=== PATIENT | female | born 1940 | race Caucasian/White ===

== ENCOUNTER → 2019-04-10 08:35 | Outpatient (CLI) | payer MEDICARE, BC, SELFPAY ==
--- NOTE | 2019-04-10 08:40 | RAD_ITS ---
STUDY: BARIUM ESOPHAGRAM REASON FOR EXAM: Female, 78 years old. Dysphagia, 30 pound weight loss, anorexia RADIATION DOSAGE (If Supplied By Facility): CTDIvol = ( ) mGy, DLP = ( ) mGycm. Individualized dose optimization techniques were used for this CT.? FLUOROSCOPY TIME (if supplied): (1:08) minutes/seconds TECHNIQUE: Air-contrast COMPARISON: None. FINDINGS: Swallowing was initiated normally. No nasofrontal reflux or aspiration. No Zenker's diverticulum noted on the lateral view. Normal peristaltic activity. No tertiary contractions or intraesophageal reflux. No evidence of hiatal hernia or GE reflux. 13 mm barium pill passed through the esophagus without difficulty. RAD/Esophagus Only IMPRESSION: Unremarkable air-contrast barium esophagram Electronically Signed: Mat Zavala MD at 10:50 EDT , Service support ,
== END ==
PROVIDERS: Family Provider Family Medicine; PCP Family Medicine; Referring Provider Internal Medicine Gastroenterology; Visit Provider Internal Medicine Gastroenterology
DX: R13.10 Dysphagia, unspecified (principal)
CPT/HCPCS: 74220

== ENCOUNTER 2025-01-06 13:23 | Outpatient (RCR) | payer MEDICARE, BC, SELFPAY ==
[2025-01-06 13:51] VITALS: BP 133/60; PULSE 83; RESP 14; TEMP 36.8; BMI 16.5
--- NOTE | 2025-01-07 09:44 | WC ---
PHOTO 01/06/25 YAW
--- NOTE | 2025-01-07 15:26 | PCM.WC.HP ---
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 The ulceration began as a traumatic wound which occurred on November 21, 2024, when the patient tripped and injured her distal right lower extremity. She was seen and evaluated in the emergency department at [facility], where sutures were placed for closure of an open wound. The patient experienced pain at the injury site, and return to the emergency department several time over the next several days. Finally, on the third visit, she was told that the stitches which had been placed were too tight. The sutures were removed approximately 10 days following their placement. Steri-Strips were applied. However, the patient suffered a dehiscence of the wound closure, and has developed a ulceration at the injury site. As per instructions, the patient has been using bacitracin topically. She presented for definitive evaluation and management relative to this chronic, nonhealing ulceration. The patient has a history of multiple pre-existing medical problems, which are listed herein. However, she is not diabetic. She is not a smoker. Her ambulatory capacity is limited. She requires a cane for ambulation. She lives alone, but has an adult son who assists in her care. She also has home health nursing personnel. It appears as though the patient's appetite is not good. She has a chronic difficulty in swallowing. She has been losing weight. She is thin and frail, with a BMI of 16.6. [facility] Medical History Advanced age Iron deficiency anemia Osteoporosis Hypothyroidism Diverticulosis Hyperlipidemia Urinary incontinence Vitamin D deficiency Chronic respiratory failure Hammertoe of left foot COPD (chronic obstructive pulmonary disease) GERD (gastroesophageal reflux disease) Non-pressure chronic ulcer of right lower leg with fat layer exposed Home Medications ?Medication ?Instructions ?Recorded ?Last Taken ?Type lorazepam 1 mg tablet 1 mg PO Q8H PRN PRN agitation 01/06/25 Unknown History pantoprazole 20 mg tablet,delayed 20 mg PO DAILY 01/06/25 Unknown History release pantoprazole 40 mg tablet,delayed 40 mg PO DAILY 01/06/25 Unknown History release tiotropium 2.5 mcg-olodaterol 2.5 2 puff inhalation DAILY 01/06/25 Unknown History mcg/actuation mist for inhalation (Stiolto Respimat) tiotropium bromide 18 mcg capsule 1 cap inhalation DAILY 01/06/25 Unknown History with inhalation device Allergy/AdvReac Type Severity Reaction Status Date / Time fluticasone (From Advair Allergy PT UNSURE Verified 01/06/25 14:25 Diskus) OF REACTION salmeterol (From Advair Allergy PT UNSURE Verified 01/06/25 14:25 Diskus) OF REACTION Surgical History (Updated 01/07/25 @ 15:[address] Elvin Negron MD) History of bladder suspension procedure History of resection of small bowel Social History Smoking Status: Former smoker Vital Signs Vital Signs Vital Signs: Weight Weight: 82 lb Body Mass Index (BMI) 16.5 Debridement Note Debridement Note Post-Debridement Measurements and Additional Note: Post-Debridement Measurements/Treatment - Nurse 1 - General Ulcer Assessment Start: 01/06/25 13:50 Freq: Status: Active Protocol: TinybeansMariusz Activity Type Activity Date Activity User E-sign Co-sign Detail Recorded Client Recorded Date Recorded By Document 01/06/25 13:51 ML [id number] 01/06/25 14:11 ML 01/06/25 13:51 - Today's Visit Information Type of service Initial Visit Arrival Mode Ambulatory Transfer Assistance None Patient Identification Verified (Name & Yes ) Patient Requires Transmission-Based No Precautions Height and Weight Height 4 ft 11 in Weight 82 lb Weight in Pounds 82.0 lbs Body Mass Index (BMI) 16.5 BMI Classification Underweight Vital Signs Temperature (97.8 F-99.1 F) 98.3 F Temperature Source Temporal Pulse Rate (60-100) 83 Pulse Location Monitor Respiratory Rate (12-18) 14 Respiratory rate source Observation Blood Pressure (90/60-120/80) 133/60 H Blood Pressure Mean 84 Source Monitor Position Sitting Blood Pressure Location Right Arm Pain Scale: 0-10 Numeric Is Patient Pain Free? Yes Lower Extremity Assessment/ Foot Assessment/ Toe Nail Assessment Left -Polpliteal Pulses Palpable Yes -Hair Growth on Legs Yes -Hair Growth on Toes No -Temperature of Extremity Cool -Capillary Refill Less than 3 Seconds -Other Deformity No -Prior Foot Ulcer No -Charcot Joint No -Prior Amputation No -Thick No -Discolored No -Deformed No -Improper Length & Hygeine No Neuropathy Assessment Feet - Top Side and Bottom <Entered> (a) Communication Assessment Preferred language Macedonian Registrar Nurses' Registry Required No Able to Read Yes Able to Write Yes Caregiver Communication Skills No Impairment Impairment Right Hearing Abillity Hard of Hearing Left Hearing Abillity Hard of Hearing Visual Assistive Devices Glasses Teaching Assessment Preferences Verbal,Written, Audio/Visual, Demonstration Barriers to Learning None Readiness To Learn Excellent Willingness to Engage in Self Management High Activies Readiness to Engage in Self Management High Activities Anxiety Level Calm Cooperation Cooperative Perception Coherent Interest in Health Problem Asks Questions Education Importance Acknowledges Need Does Patient Smoke tobacco or other No substances Smoking Status Former smoker Is Patient Diabetic No Functional Assessment Recent Decline in Ability to Perform Denies Any Declines Assistive Device With Patient Yes List Device(s) with Patient cane Culture/Confucianism/Community Relations Officer Cultural/Confucianism Needs that may affect Yes Treatment Plan Would you allow our [facility] final expense agent to Yes meet you for the purpose of spiritual/ emotional support? Community Relations Officer to contact place of [facility] Yes (a) 1 - + 2 - + 3 - - 4 - + 5 - + 6 - + WC - Nurse 1 - General Ulcer Measurement Start: 01/06/25 13:50 Freq: Status: Active Protocol: Activity Type Activity Date Activity User E-sign Co-sign Detail Recorded Client Recorded Date Recorded By Document 01/06/25 13:51 ML [id number] 01/06/25 14:11 ML 01/06/25 13:51 Wound Center Nurse 1 #1 right martinez -Current Size (cm) - Length 0.9 -Current Size (cm) - Width 1.6 -Current Size (cm) - Depth 0.1 -Total Square Cm 1.44 -Exudate Amt Medium -Exudate Type Serosanguineous -Wound Margin Distinct, Outline Attached -Granulation Amt Medium (34-66%) -Slough/Fibrin Yes -Necrosis Amt Medium (34-66%) -Necrotic Tissue Type Adherent Slough -Texture (Joanne-wound Skin Appearance) Assessed -Moisture (Joanne-wound Skin Appearance) Assessed -Color (Joanne-wound Skin Appearance) Assessed -Temperature (Joanne-wound Skin No Abnormality Appearance) (Pt Warm) -Tenderness on Palpation (Joanne-wound No Skin Appearance) -Ulcer Cleansing Rinsed/ Irrigated with Saline -Foul Odor after Cleansing No -Anesthetic Used 5% Lidocaine Gel Right Calf (cm) 24.6 Right Ankle (cm) 17.6 Left Calf (cm) 26.2 Left Ankle (cm) 17.9 - Nurse 2 - General Ulcer CM Notes Start: 01/06/25 13:50 Freq: Status: Active Protocol: Activity Type Activity Date Activity User E-sign Co-sign Detail Recorded Client Recorded Date Recorded By Document 01/06/25 14:34 [id number] 01/06/25 14:47 01/06/25 14:34 Wound Center Nurse 2 #1 right martinez -Time 14:36 -Correct Patient Yes -Correct Side, Site, Position Yes -Correct Procedure Yes -Procedure Performed Yes -Type of Procedure Debridement -Clinical Debridement Subcutaneous -Tissue Removed Subcutaneous -Post Debridement (cm) - Length 0.7 -Post Debridement (cm) - Width 0.8 -Post Debridement (cm) - Depth 0.2 -Total Square (Post) (cm) 0.56 -Area of Debridement (cm) - Length 0.7 -Area of Debridement (cm) - Width 0.8 -Total Square (Area) (cm) 0.56 -Tunneling No -Undermining/Tunneling No -Circular Undermining No -Wound/Ulcer Outcome Not Healed -Ulcer Cleansing Rinsed/ Irrigated with Saline -Foul Odor after Cleansing No -Bioengineered Tissue No -Bleeding Controlled with Pressure -Treatment Response Procedure Tolerated Well -Debridement - Subq, 1st 20sq cm Yes Pain Scale: 0-10 Numeric Is Patient Pain Free? Yes - Nurse 3 - General Ulcer D/C NN Start: 01/06/25 13:50 Freq: Status: Active Protocol: Activity Type Activity Date Activity User E-sign Co-sign Detail Recorded Client Recorded Date Recorded By Document 01/06/25 14:56 [id number] 01/06/25 14:56 01/06/25 14:56 Wound Care Center Nurse 3 #1 right martinez -Primary Dressing Applied Fibracol Plus 4x4,Silicone Border Foam 4x4 -Fibracol Plus 4x4 1 -Silicone Border Foam 4x4 1 Pain Scale: 0-10 Numeric Is Patient Pain Free? Yes - Visit Discharge Discharge Condition Stable Ambulatory Status Ambulatory,Cane Transportation Private Auto Medication Reconcilliation completed & No provided to patient/care provider Clinical Summary of Care Provided Yes Assessment/Plan Assessment/Plan (1) Non-pressure chronic ulcer of right lower leg with fat layer exposed: CODE(S): L97.912 - Non-pressure chronic ulcer of unspecified part of right lower leg with fat layer exposed (2) Advanced age: CODE(S): R54 - Age-related physical debility (3) GERD (gastroesophageal reflux disease): CODE(S): K21.9 - Gastro-esophageal reflux disease without esophagitis (4) COPD (chronic obstructive pulmonary disease): CODE(S): J44.9 - Chronic obstructive pulmonary disease, unspecified (5) Hammertoe of left foot: CODE(S): M20.42 - Other hammer toe(s) (acquired), left foot (6) Chronic respiratory failure: CODE(S): J96.10 - Chronic respiratory failure, unspecified whether with hypoxia or hypercapnia (7) Vitamin D deficiency: CODE(S): E55.9 - Vitamin D deficiency, unspecified (8) Urinary incontinence: CODE(S): R32 - Unspecified urinary incontinence (9) Hyperlipidemia: CODE(S): E78.5 - Hyperlipidemia, unspecified (10) Diverticulosis: CODE(S): K57.90 - Diverticulosis of intestine, part unspecified, without perforation or abscess without bleeding (11) Hypothyroidism: CODE(S): E03.9 - Hypothyroidism, unspecified (12) Osteoporosis: CODE(S): M81.0 - Age-related osteoporosis without current pathological fracture (13) Iron deficiency anemia: CODE(S): D50.9 - Iron deficiency anemia, unspecified (14) History of resection of small bowel: CODE(S): Z90.49 - Acquired absence of other specified parts of digestive tract (15) History of bladder suspension procedure: CODE(S): Z98.890 - Other specified postprocedural states; Z87.448 - Personal history of other diseases of urinary system
--- NOTE | 2025-01-07 15:38 | PCM.WC.HP ---
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 The ulceration began as a traumatic wound which occurred on November 21, 2024, when the patient tripped and injured her distal right lower extremity. She was seen and evaluated in the emergency department at [facility], where sutures were placed for closure of an open wound. The patient experienced pain at the injury site, and return to the emergency department several time over the next several days. Finally, on the third visit, she was told that the stitches which had been placed were too tight. The sutures were removed approximately 10 days following their placement. Steri-Strips were applied. However, the patient suffered a dehiscence of the wound closure, and has developed a ulceration at the injury site. As per instructions, the patient has been using bacitracin topically. She presented for definitive evaluation and management relative to this chronic, nonhealing ulceration. The patient has a history of multiple pre-existing medical problems, which are listed herein. However, she is not diabetic. She is not a smoker. Her ambulatory capacity is limited. She requires a cane for ambulation. She lives alone, but has an adult son who assists in her care. She also has home health nursing personnel. It appears as though the patient's appetite is not good. She has a chronic difficulty in swallowing. She has been losing weight. She is thin and frail, with a BMI of 16.6. [facility] Medical History (Updated 01/07/25 @ 15:[address] Elvin Negron MD) Dehiscence of laceration repair Advanced age Iron deficiency anemia Osteoporosis Hypothyroidism Diverticulosis Hyperlipidemia Urinary incontinence Vitamin D deficiency Chronic respiratory failure Hammertoe of left foot COPD (chronic obstructive pulmonary disease) GERD (gastroesophageal reflux disease) Non-pressure chronic ulcer of right lower leg with fat layer exposed Home Medications ?Medication ?Instructions ?Recorded ?Last Taken ?Type lorazepam 1 mg tablet 1 mg PO Q8H PRN PRN agitation 01/06/25 Unknown History pantoprazole 20 mg tablet,delayed 20 mg PO DAILY 01/06/25 Unknown History release pantoprazole 40 mg tablet,delayed 40 mg PO DAILY 01/06/25 Unknown History release tiotropium 2.5 mcg-olodaterol 2.5 2 puff inhalation DAILY 01/06/25 Unknown History mcg/actuation mist for inhalation (Stiolto Respimat) tiotropium bromide 18 mcg capsule 1 cap inhalation DAILY 01/06/25 Unknown History with inhalation device Allergy/AdvReac Type Severity Reaction Status Date / Time fluticasone (From Advair Allergy PT UNSURE Verified 01/06/25 14:25 Diskus) OF REACTION salmeterol (From Advair Allergy PT UNSURE Verified 01/06/25 14:25 Diskus) OF REACTION Surgical History History of bladder suspension procedure History of resection of small bowel Social History Smoking Status: Former smoker Vital Signs Vital Signs Vital Signs: Weight Weight: 82 lb Body Mass Index (BMI) 16.5 Physical Exam Const alert, oriented x3, no apparent distress and no limitations Constitutional Narrative: The patient appears thin and frail. Her BMI is 16.6. General Appearance: cooperative, comfortable and well developed Orientation / Consciousness: awake, oriented to person, oriented to place and oriented to time Exam Limitations: no limitations HEENT normocephalic and head/scalp atraumatic Head and Scalp: normal to inspection, normocephalic and atraumatic Face and Sinus: normal facial exam Nose: external nose normal External Ear: external ears normal Eyes EOMs intact bilaterally General Eye: normal appearance of both eyes Resp normal respiratory effort, normal air movement, no retractions and no use of accessory muscles Effort and Inspection: able to speak in complete sentences Extremity no calf tenderness General Extremity: Negative for clubbing or cyanosis Skin Wound Narrative: An open ulceration is noted on the distal right pretibial surface. Ulcer margins are not well beveled. The base of the ulceration demonstrates a large amount of bioburden, slough, and nonviable tissue. There is no obvious sign of infection or cellulitis. Dimensions are documented elsewhere. The ulceration appears to represent a portion of the original traumatic wound, the preponderance of which is well-healed. Two Steri-Strips remain in place over the original wound site. They appear ready to be removed, but the patient has refused, preferring to leave them in place. Neuro oriented x3, CN's II-XII intact bilaterally, moves all extremities, no focal motor deficits and no sensory deficits noted Sensorium / Orientation: awake, alert, oriented to person, oriented to place and oriented to time Speech: speech normal Psych Appearance: grossly normal and appropriate Attitude: calm Activity / Motor Behavior: appropriate eye contact Speech: normal speech Mood & Affect: euthymic mood Thought Process: normal thought process Thought Content: normal thought content Attention / Concentration: attention grossly intact Debridement Note Debridement Note Wound debrided: Ulceration of the right distal pretibial surface Laterality: Right Type of Debridement: Excisional debridement Anesthesia Used: 5% Lidocaine Gel and Cetacaine Depth: in the subcutaneous layer Percentage of wound debrided: 100 Instrument Used: 5mm curette Tissue Removed: Bioburden, slough, and devitalized tissue Severity: Fat Layer Exposed Amount of bleeding with debridement: Mild Bleeding Controlled with: Compression and gauze Patient tolerated procedure: Patient tolerated procedure well Post-Debridement Measurements and Additional Note: Post-Debridement Measurements/Treatment - Nurse 1 - General Ulcer Assessment Start: 01/06/25 13:50 Freq: Status: Active Protocol: PANKAJ Activity Type Activity Date Activity User E-sign Co-sign Detail Recorded Client Recorded Date Recorded By Document 01/06/25 13:51 ML [id number] 01/06/25 14:11 ML 01/06/25 13:51 - Today's Visit Information Type of service Initial Visit Arrival Mode Ambulatory Transfer Assistance None Patient Identification Verified (Name & Yes ) Patient Requires Transmission-Based No Precautions Height and Weight Height 4 ft 11 in Weight 82 lb Weight in Pounds 82.0 lbs Body Mass Index (BMI) 16.5 BMI Classification Underweight Vital Signs Temperature (97.8 F-99.1 F) 98.3 F Temperature Source Temporal Pulse Rate (60-100) 83 Pulse Location Monitor Respiratory Rate (12-18) 14 Respiratory rate source Observation Blood Pressure (90/60-120/80) 133/60 H Blood Pressure Mean 84 Source Monitor Position Sitting Blood Pressure Location Right Arm Pain Scale: 0-10 Numeric Is Patient Pain Free? Yes Lower Extremity Assessment/ Foot Assessment/ Toe Nail Assessment Left -Polpliteal Pulses Palpable Yes -Hair Growth on Legs Yes -Hair Growth on Toes No -Temperature of Extremity Cool -Capillary Refill Less than 3 Seconds -Other Deformity No -Prior Foot Ulcer No -Charcot Joint No -Prior Amputation No -Thick No -Discolored No -Deformed No -Improper Length & Hygeine No Neuropathy Assessment Feet - Top Side and Bottom <Entered> (a) Communication Assessment Preferred language [place] Dental Assistant Medical Assistant Required No Able to Read Yes Able to Write Yes Caregiver Communication Skills No Impairment Impairment Right Hearing Abillity Hard of Hearing Left Hearing Abillity Hard of Hearing Visual Assistive Devices Glasses Teaching Assessment Preferences Verbal,Written, Audio/Visual, Demonstration Barriers to Learning None Readiness To Learn Excellent Willingness to Engage in Self Management High Activies Readiness to Engage in Self Management High Activities Anxiety Level Calm Cooperation Cooperative Perception Coherent Interest in Health Problem Asks Questions Education Importance Acknowledges Need Does Patient Smoke tobacco or other No substances Smoking Status Former smoker Is Patient Diabetic No Functional Assessment Recent Decline in Ability to Perform Denies Any Declines Assistive Device With Patient Yes List Device(s) with Patient cane Culture/Evangelical/Mid Level Developer Cultural/Evangelical Needs that may affect Yes Treatment Plan Would you allow [facility] associate artistic director to Yes meet you for the purpose of spiritual/ emotional support? Mid Level Developer to contact place of mandaeism Yes (a) 1 - + 2 - + 3 - - 4 - + 5 - + 6 - + WC - Nurse 1 - General Ulcer Measurement Start: 01/06/25 13:50 Freq: Status: Active Protocol: Activity Type Activity Date Activity User E-sign Co-sign Detail Recorded Client Recorded Date Recorded By Document 01/06/25 13:51 ML [id number] 01/06/25 14:11 ML 01/06/25 13:51 Wound Center Nurse 1 #1 right martinez -Current Size (cm) - Length 0.9 -Current Size (cm) - Width 1.6 -Current Size (cm) - Depth 0.1 -Total Square Cm 1.44 -Exudate Amt Medium -Exudate Type Serosanguineous -Wound Margin Distinct, Outline Attached -Granulation Amt Medium (34-66%) -Slough/Fibrin Yes -Necrosis Amt Medium (34-66%) -Necrotic Tissue Type Adherent Slough -Texture (Joanne-wound Skin Appearance) Assessed -Moisture (Joanne-wound Skin Appearance) Assessed -Color (Joanne-wound Skin Appearance) Assessed -Temperature (Joanne-wound Skin No Abnormality Appearance) (Pt Warm) -Tenderness on Palpation (Joanne-wound No Skin Appearance) -Ulcer Cleansing Rinsed/ Irrigated with Saline -Foul Odor after Cleansing No -Anesthetic Used 5% Lidocaine Gel Right Calf (cm) 24.6 Right Ankle (cm) 17.6 Left Calf (cm) 26.2 Left Ankle (cm) 17.9 - Nurse 2 - General Ulcer CM Notes Start: 01/06/25 13:50 Freq: Status: Active Protocol: Activity Type Activity Date Activity User E-sign Co-sign Detail Recorded Client Recorded Date Recorded By Document 01/06/25 14:34 [id number] 01/06/25 14:47 01/06/25 14:34 Wound Center Nurse 2 #1 right martinez -Time 14:36 -Correct Patient Yes -Correct Side, Site, Position Yes -Correct Procedure Yes -Procedure Performed Yes -Type of Procedure Debridement -Clinical Debridement Subcutaneous -Tissue Removed Subcutaneous -Post Debridement (cm) - Length 0.7 -Post Debridement (cm) - Width 0.8 -Post Debridement (cm) - Depth 0.2 -Total Square (Post) (cm) 0.56 -Area of Debridement (cm) - Length 0.7 -Area of Debridement (cm) - Width 0.8 -Total Square (Area) (cm) 0.56 -Tunneling No -Undermining/Tunneling No -Circular Undermining No -Wound/Ulcer Outcome Not Healed -Ulcer Cleansing Rinsed/ Irrigated with Saline -Foul Odor after Cleansing No -Bioengineered Tissue No -Bleeding Controlled with Pressure -Treatment Response Procedure Tolerated Well -Debridement - Subq, 1st 20sq cm Yes Pain Scale: 0-10 Numeric Is Patient Pain Free? Yes - Nurse 3 - General Ulcer D/C NN Start: 01/06/25 13:50 Freq: Status: Active Protocol: Activity Type Activity Date Activity User E-sign Co-sign Detail Recorded Client Recorded Date Recorded By Document 01/06/25 14:56 [id number] 01/06/25 14:56 01/06/25 14:56 Wound Care Center Nurse 3 #1 right martinez -Primary Dressing Applied Fibracol Plus 4x4,Silicone Border Foam 4x4 -Fibracol Plus 4x4 1 -Silicone Border Foam 4x4 1 Pain Scale: 0-10 Numeric Is Patient Pain Free? Yes - Visit Discharge Discharge Condition Stable Ambulatory Status Ambulatory,Cane Transportation Private Auto Medication Reconcilliation completed & No provided to patient/care provider Clinical Summary of Care Provided Yes Charges/Coding Multi Select Codes Visit Charges Office Visit/Consults: 25772 OV L4 New 45 min Integumentary Integumentary CPT Codes: 37548 Whitney subq tissue 20 sq cm/< Assessment/Plan Assessment/Plan (1) Non-pressure chronic ulcer of right lower leg with fat layer exposed: CODE(S): L97.912 - Non-pressure chronic ulcer of unspecified part of right lower leg with fat layer exposed (2) Dehiscence of laceration repair: CODE(S): T81.33XA - Disruption of traumatic injury wound repair, initial encounter QUALIFIERS: Encounter type: initial encounter Qualified Code(s): T81.33XA - Disruption of traumatic injury wound repair, initial encounter (3) Advanced age: CODE(S): R54 - Age-related physical debility (4) GERD (gastroesophageal reflux disease): CODE(S): K21.9 - Gastro-esophageal reflux disease without esophagitis (5) COPD (chronic obstructive pulmonary disease): CODE(S): J44.9 - Chronic obstructive pulmonary disease, unspecified (6) Hammertoe of left foot: CODE(S): M20.42 - Other hammer toe(s) (acquired), left foot (7) Chronic respiratory failure: CODE(S): J96.10 - Chronic respiratory failure, unspecified whether with hypoxia or hypercapnia (8) Vitamin D deficiency: CODE(S): E55.9 - Vitamin D deficiency, unspecified (9) Urinary incontinence: CODE(S): R32 - Unspecified urinary incontinence (10) Hyperlipidemia: CODE(S): E78.5 - Hyperlipidemia, unspecified (11) Diverticulosis: CODE(S): K57.90 - Diverticulosis of intestine, part unspecified, without perforation or abscess without bleeding (12) Hypothyroidism: CODE(S): E03.9 - Hypothyroidism, unspecified (13) Osteoporosis: CODE(S): M81.0 - Age-related osteoporosis without current pathological fracture (14) Iron deficiency anemia: CODE(S): D50.9 - Iron deficiency anemia, unspecified (15) History of resection of small bowel: CODE(S): Z90.49 - Acquired absence of other specified parts of digestive tract (16) History of bladder suspension procedure: CODE(S): Z98.890 - Other specified postprocedural states; Z87.448 - Personal history of other diseases of urinary system PLAN: Plan This is an 84-year-old female who presented with an ulceration on the right distal pretibial surface, which was traumatic in origin. At the time of initial trauma, the patient presented to the emergency department at [facility], where suture repair was performed. The suture closure has since dehisced, for which the patient has presented for definitive evaluation and management. The patient has been using bacitracin topically. We are to implement the use of moistened Fibracol, which we applied topically every other day. The patient and her son, who is at the bedside, have been instructed in appropriate means of application. The patient also has home health nursing care for assistance. [place] SAP will be applied over the Fibricol. The patient has been instructed to optimize her nutritional intake. Because of her difficulty swallowing, it is suspected that her nutritional status is suboptimal. Therefore, she has been given samples of Ensure high-protein drink, and instructed to use nutritional supplementation in addition to her regular diet. The patient is to return in 1 week for reassessment. Total time: 45 minutes
== END 2025-01-13 23:59 | disposition home or self-care (01) ==
LOC: WC 13:23
PROVIDERS: PCP Family Medicine; Referring Provider Family Medicine; Visit Provider Surgery
DX: L97.812 Non-pressure chronic ulcer of other part of right lower leg with fat layer exposed (principal); J96.10 Chronic respiratory failure, unspecified whether with hypoxia or hypercapnia; J44.9 Chronic obstructive pulmonary disease, unspecified; K21.9 Gastro-esophageal reflux disease without esophagitis; Z87.891 Personal history of nicotine dependence; E03.9 Hypothyroidism, unspecified; R13.10 Dysphagia, unspecified; E55.9 Vitamin D deficiency, unspecified; E78.5 Hyperlipidemia, unspecified; K57.90 Diverticulosis of intestine, part unspecified, without perforation or abscess without bleeding; D50.9 Iron deficiency anemia, unspecified; G62.9 Polyneuropathy, unspecified; M20.42 Other hammer toe(s) (acquired), left foot; M81.0 Age-related osteoporosis without current pathological fracture; R32 Unspecified urinary incontinence; R54 Age-related physical debility; Z90.49 Acquired absence of other specified parts of digestive tract; Z98.890 Other specified postprocedural states; T81.33XA Disruption of traumatic injury wound repair, initial encounter
CPT/HCPCS: 11042; 99204; G0463

== ENCOUNTER 2025-01-20 14:15 | Outpatient (RCR) | payer MEDICARE, BC, SELFPAY ==
[2025-01-14 00:23] VITALS: BP 133/60; PULSE 83; RESP 14; TEMP 36.8; BMI 16.5
[2025-01-14 14:38] VITALS: BP 137/61; PULSE 91; RESP 16; BMI 16.5
[2025-01-20 14:07] VITALS: BP 141/72; PULSE 102; RESP 16; TEMP 36.8; BMI 16.5
--- NOTE | 2025-01-21 10:45 | WC ---
PHOTO 01/20/25 RIGHT THOMASON
--- NOTE | 2025-01-21 16:14 | PCM.WC.HP ---
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 The ulceration began as a traumatic wound which occurred on November 21, 2024, when the patient tripped and injured her distal right lower extremity. She was seen and evaluated in the emergency department at [facility], where sutures were placed for closure of an open wound. The patient experienced pain at the injury site, and return to the emergency department several time over the next several days. Finally, on the third visit, she was told that the stitches which had been placed were too tight. The sutures were removed approximately 10 days following their placement. Steri-Strips were applied. However, the patient suffered a dehiscence of the wound closure, and has developed a ulceration at the injury site. As per instructions, the patient has been using bacitracin topically. She presented for definitive evaluation and management relative to this chronic, nonhealing ulceration. The patient has a history of multiple pre-existing medical problems, which are listed herein. However, she is not diabetic. She is not a smoker. Her ambulatory capacity is limited. She requires a cane for ambulation. She lives alone, but has an adult son who assists in her care. She also has home health nursing personnel. It appears as though the patient's appetite is not good. She has a chronic difficulty in swallowing. She has been losing weight. She is thin and frail, with a BMI of 16.6. [facility] Medical History Dehiscence of laceration repair Advanced age Iron deficiency anemia Osteoporosis Hypothyroidism Diverticulosis Hyperlipidemia Urinary incontinence Vitamin D deficiency Chronic respiratory failure Hammertoe of left foot COPD (chronic obstructive pulmonary disease) GERD (gastroesophageal reflux disease) Non-pressure chronic ulcer of right lower leg with fat layer exposed Home Medications ?Medication ?Instructions ?Recorded ?Last Taken ?Type lorazepam 1 mg tablet 1 mg PO Q8H PRN PRN agitation 01/06/25 Unknown History pantoprazole 20 mg tablet,delayed 20 mg PO DAILY 01/06/25 Unknown History release pantoprazole 40 mg tablet,delayed 40 mg PO DAILY 01/06/25 Unknown History release tiotropium 2.5 mcg-olodaterol 2.5 2 puff inhalation DAILY 01/06/25 Unknown History mcg/actuation mist for inhalation (Stiolto Respimat) tiotropium bromide 18 mcg capsule 1 cap inhalation DAILY 01/06/25 Unknown History with inhalation device Allergy/AdvReac Type Severity Reaction Status Date / Time fluticasone (From Advair Allergy PT UNSURE Verified 01/06/25 14:25 Diskus) OF REACTION salmeterol (From Advair Allergy PT UNSURE Verified 01/06/25 14:25 Diskus) OF REACTION Surgical History History of bladder suspension procedure History of resection of small bowel Social History Smoking Status: Former smoker Vital Signs Vital Signs Vital Signs: Weight Weight: 82 lb Body Mass Index (BMI) 16.5 Physical Exam Const alert, oriented x3, no apparent distress and no limitations Constitutional Narrative: The patient appears thin and frail. Her BMI is 16.6. General Appearance: cooperative, comfortable and well developed Orientation / Consciousness: awake, oriented to person, oriented to place and oriented to time Exam Limitations: no limitations HEENT normocephalic and head/scalp atraumatic Head and Scalp: normal to inspection, normocephalic and atraumatic Face and Sinus: normal facial exam Nose: external nose normal External Ear: external ears normal Eyes EOMs intact bilaterally General Eye: normal appearance of both eyes Resp normal respiratory effort, normal air movement, no retractions and no use of accessory muscles Effort and Inspection: able to speak in complete sentences Extremity no calf tenderness General Extremity: Negative for clubbing or cyanosis Skin Wound Narrative: An open ulceration is noted on the distal right pretibial surface. The ulceration is significantly smaller than noted previously. There has also been a decrease in depth. Dimensions are documented elsewhere. The base of the ulceration demonstrates a small amount of bioburden, though there is evidence of peripheral epithelialization and healthy, pink granulation tissue. There is no obvious sign of infection or cellulitis. Neuro oriented x3, CN's II-XII intact bilaterally, moves all extremities, no focal motor deficits and no sensory deficits noted Sensorium / Orientation: awake, alert, oriented to person, oriented to place and oriented to time Speech: speech normal Psych Appearance: grossly normal and appropriate Attitude: calm Activity / Motor Behavior: appropriate eye contact Speech: normal speech Mood & Affect: euthymic mood Thought Process: normal thought process Thought Content: normal thought content Attention / Concentration: attention grossly intact Debridement Note Debridement Note Wound debrided: Ulceration of the right distal pretibial surface Laterality: Right Type of Debridement: Excisional debridement Anesthesia Used: 5% Lidocaine Gel and Cetacaine Depth: Down to and including healthy tissue and in the subcutaneous layer Percentage of wound debrided: 100 Instrument Used: 3mm curette Tissue Removed: Bioburden and devitalized material Severity: Fat Layer Exposed Amount of bleeding with debridement: Mild Bleeding Controlled with: Compression and gauze Patient tolerated procedure: Patient tolerated procedure well Post-Debridement Measurements and Additional Note: Post-Debridement Measurements/Treatment - Nurse 1 - General Ulcer Assessment Start: 01/14/25 14:38 Freq: Status: Active Protocol: PANKAJ Activity Type Activity Date Activity User E-sign Co-sign Detail Recorded Client Recorded Date Recorded By Document 01/14/25 14:38 KW [id number] 01/14/25 14:46 KW Edit Result 01/14/25 14:38 KW (1) [id number] 01/14/25 14:48 KW Document 01/20/25 14:07 BMF [id number] 01/20/25 14:14 BMF (1) Pulse Rate (60-100) => 91 Blood Pressure (90/60-120/80) => 137/61 H Blood Pressure Mean => 86 01/14/25 01/20/25 14:38 14:07 - Today's Visit Information Type of service Nurse-only Follow-up Visit Visit (Physician/PHARMACOVIGILANCE SCIENTIST ) Arrival Mode Ambulatory Ambulatory Transfer Assistance None Patient Identification Verified (Name & Yes Yes ) Patient Requires Transmission-Based No Precautions Height and Weight Body Mass Index (BMI) 16.5 16.5 BMI Classification Underweight Underweight Vital Signs Temperature (97.8 F-99.1 F) 98.2 F Temperature Source Temporal Temporal Pulse Rate (60-100) 91 102 H Pulse Location Monitor Monitor Respiratory Rate (12-18) 16 16 Respiratory rate source Observation Observation Oxygen Delivery Method Room Air Room Air Blood Pressure (90/60-120/80) 137/61 H 141/72 H Blood Pressure Mean 86 95 Source Monitor Monitor Position Semi-Fowlers Sitting Blood Pressure Location Left Arm History Since Last Visit- (Skip if this is Patient's initial visit) Have you changed medications since your No No last visit? Any new allergies or adverse reactions No No Had a fall/change in ADL's that may No No increase risk of falls Signs or symptoms of abuse and/or No No neglect since last visit Have you been in the hospital since your No No last visit? Has dressing in place as prescribed Yes Yes Has compression in place as prescribed N/A N/A Has offloadiing in place as prescribed N/A N/A Experienced any changes in pain level or No No management Left Footwear Regular Shoe Regular Shoe Right Footwear Regular Shoe Regular Shoe Pain Scale: 0-10 Numeric Is Patient Pain Free? Yes Yes - Nurse 1 - General Ulcer Measurement Start: 01/14/25 14:38 Freq: Status: Active Protocol: Activity Type Activity Date Activity User E-sign Co-sign Detail Recorded Client Recorded Date Recorded By Document 01/20/25 14:07 [facility] [id number] 01/20/25 14:14 [facility] 01/20/25 14:07 Wound Center Nurse 1 #1 right martinez -Combined with other wound No -Current Size (cm) - Length 0.3 -Current Size (cm) - Width 0.3 -Current Size (cm) - Depth 0.1 -Total Square Cm 0.09 -Date of Last Picture (Recall this 01/20/25 field) -Photo Taken Yes -Epithelialization Medium 34-66% -Tunneling No -Undermining/Tunneling No -Circular Undermining No -Exudate Amt Medium -Exudate Type Serous -Wound Margin Distinct, Outline Attached -Granulation Amt Large (67-100%) -Granulation Quality [place] -Slough/Fibrin Yes -Necrosis Amt Small (1-33%) -Necrotic Tissue Type Adherent Slough -Texture (Joanne-wound Skin Appearance) Assessed -Moisture (Joanne-wound Skin Appearance) Assessed -Color (Joanne-wound Skin Appearance) Assessed -Temperature (Joanne-wound Skin No Abnormality Appearance) (Pt Warm) -Tenderness on Palpation (Joanne-wound No Skin Appearance) -Ulcer Cleansing Rinsed/ Irrigated with Saline -Foul Odor after Cleansing No -Anesthetic Used 5% Lidocaine Gel RIYA - Nurse 2 - General Ulcer CM Notes Start: 01/14/25 14:38 Freq: Status: Active Protocol: Activity Type Activity Date Activity User E-sign Co-sign Detail Recorded Client Recorded Date Recorded By Document 01/20/25 14:33 [id number] 01/20/25 14:37 01/20/25 14:33 Wound Center Nurse 2 -Time 14:33 -Correct Patient Yes -Correct Side, Site, Position Yes -Correct Procedure Yes -Procedure Performed Yes -Type of Procedure Debridement -Clinical Debridement Subcutaneous -Tissue Removed Subcutaneous -Post Debridement (cm) - Length 0.4 -Post Debridement (cm) - Width 0.4 -Post Debridement (cm) - Depth 0.1 -Total Square (Post) (cm) 0.16 -Area of Debridement (cm) - Length 0.4 -Area of Debridement (cm) - Width 0.4 -Total Square (Area) (cm) 0.16 -Tunneling No -Undermining/Tunneling No -Circular Undermining No -Wound/Ulcer Outcome Not Healed -Ulcer Cleansing Rinsed/ Irrigated with Saline -Foul Odor after Cleansing No -Bioengineered Tissue No -Bleeding Controlled with Pressure -Treatment Response Procedure Tolerated Well -Offloading No -Debridement - Subq, 1st 20sq cm Yes Pain Scale: 0-10 Numeric Is Patient Pain Free? Yes - Nurse 3 - General Ulcer D/C NN Start: 01/14/25 14:38 Freq: Status: Active Protocol: Activity Type Activity Date Activity User E-sign Co-sign Detail Recorded Client Recorded Date Recorded By Document 01/14/25 14:38 KW [id number] 01/14/25 14:46 KW Document 01/20/25 14:46 BMF [id number] 01/20/25 14:47 BMF Edit Result 01/20/25 14:46 BMF (1) [id number] 01/20/25 14:47 BMF (1) Facility Type => Home Health 01/14/25 01/20/25 14:38 14:46 Pain Scale: 0-10 Numeric Is Patient Pain Free? Yes Yes Wound Care Center Nurse 3 #1 right martinez -Ulcer Cleansing Soap and Water Rinsed/ Irrigated with Saline -Foul Odor after Cleansing No -Primary Dressing Applied Fibracol Plus Silicone Border 4x4,Silicone Foam 4x4 Border Foam 4x4 -Other Dressing FIBRACOL -Fibracol Plus 4x4 1 -Silicone Border Foam 4x4 1 1 Treatment Response Procedure Tolerated Well WC - Visit Discharge Discharge Condition Stable Stable Ambulatory Status Ambulatory,Cane Ambulatory,Cane Transportation Private Auto Private Auto Accompanied by SISTER CAME INTO RM W/ PT, SON STAYS IN LOBBY Medication Reconcilliation completed & No provided to patient/care provider Clinical Summary of Care Provided Yes Facility Type Home Health Charges/Coding Procedures Integumentary [id number]: [id number] [place] subq tissue 20 sq cm/< Assessment/Plan Assessment/Plan (1) Non-pressure chronic ulcer of right lower leg with fat layer exposed: CODE(S): L97.912 - Non-pressure chronic ulcer of unspecified part of right lower leg with fat layer exposed (2) Dehiscence of laceration repair: CODE(S): T81.33XA - Disruption of traumatic injury wound repair, initial encounter QUALIFIERS: Encounter type: initial encounter Qualified Code(s): T81.33XA - Disruption of traumatic injury wound repair, initial encounter (3) Advanced age: CODE(S): R54 - Age-related physical debility (4) GERD (gastroesophageal reflux disease): CODE(S): K21.9 - Gastro-esophageal reflux disease without esophagitis (5) COPD (chronic obstructive pulmonary disease): CODE(S): J44.9 - Chronic obstructive pulmonary disease, unspecified (6) Hammertoe of left foot: CODE(S): M20.42 - Other hammer toe(s) (acquired), left foot (7) Chronic respiratory failure: CODE(S): J96.10 - Chronic respiratory failure, unspecified whether with hypoxia or hypercapnia (8) Vitamin D deficiency: CODE(S): E55.9 - Vitamin D deficiency, unspecified (9) Urinary incontinence: CODE(S): R32 - Unspecified urinary incontinence (10) Hyperlipidemia: CODE(S): E78.5 - Hyperlipidemia, unspecified (11) Diverticulosis: CODE(S): K57.90 - Diverticulosis of intestine, part unspecified, without perforation or abscess without bleeding (12) Hypothyroidism: CODE(S): E03.9 - Hypothyroidism, unspecified (13) Osteoporosis: CODE(S): M81.0 - Age-related osteoporosis without current pathological fracture (14) Iron deficiency anemia: CODE(S): D50.9 - Iron deficiency anemia, unspecified (15) History of resection of small bowel: CODE(S): Z90.49 - Acquired absence of other specified parts of digestive tract (16) History of bladder suspension procedure: CODE(S): Z98.890 - Other specified postprocedural states; Z87.448 - Personal history of other diseases of urinary system PLAN: Plan This is an 84-year-old female who presented with an wound on the right distal pretibial surface, which was traumatic in origin. At the time of initial trauma, the patient presented to the emergency department at [facility], where suture repair was performed. The suture closure has since dehisced, for which the patient has presented for definitive evaluation and management. Upon intake, the patient had been using bacitracin topically. We are to continue the use of moistened Fibracol, which will be applied topically every other day. The patient and her son have been instructed in appropriate means of application. The patient also has home health nursing care for assistance. [place] SAP will be applied over the Fibricol. The patient has been instructed to optimize her nutritional intake. Because of her difficulty swallowing, she has been given samples of Ensure high-protein drink, and instructed to use liquid nutritional supplements in addition to her regular diet. The patient is to return in 2 weeks for reassessment due to transportation difficulties. Total time: 25 minutes
== END 2025-02-13 23:59 | disposition home or self-care (01) ==
LOC: WC 14:15
PROVIDERS: PCP Family Medicine; Referring Provider Family Medicine; Visit Provider Surgery
DX: L97.912 Non-pressure chronic ulcer of unspecified part of right lower leg with fat layer exposed (principal); J96.10 Chronic respiratory failure, unspecified whether with hypoxia or hypercapnia; J44.9 Chronic obstructive pulmonary disease, unspecified; K21.9 Gastro-esophageal reflux disease without esophagitis; M81.0 Age-related osteoporosis without current pathological fracture; R32 Unspecified urinary incontinence; R13.10 Dysphagia, unspecified; M20.42 Other hammer toe(s) (acquired), left foot; D50.9 Iron deficiency anemia, unspecified; E03.9 Hypothyroidism, unspecified; E78.5 Hyperlipidemia, unspecified; E55.9 Vitamin D deficiency, unspecified; K57.90 Diverticulosis of intestine, part unspecified, without perforation or abscess without bleeding; Z90.49 Acquired absence of other specified parts of digestive tract; Z98.890 Other specified postprocedural states; R54 Age-related physical debility; T81.33XA Disruption of traumatic injury wound repair, initial encounter
CPT/HCPCS: 11042; 99211; G0463

== ENCOUNTER 2025-02-17 14:10 | Outpatient (RCR) | payer MEDICARE, BC, SELFPAY ==
[2025-02-14 00:13] VITALS: BP 141/72; PULSE 102; RESP 16; TEMP 36.8; BMI 16.5
[2025-02-17 14:18] VITALS: BP 122/62; PULSE 83; RESP 16; TEMP 36.4; BMI 16.5
--- NOTE | 2025-02-18 08:07 | WC ---
PHOTO 02/17/25 RIGHT THOMASON
--- NOTE | 2025-02-18 15:29 | PCM.WC.HP ---
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 The ulceration began as a traumatic wound which occurred on November 21, 2024, when the patient tripped and injured her distal right lower extremity. She was seen and evaluated in the emergency department at [facility], where sutures were placed for closure of an open wound. The patient experienced pain at the injury site, and return to the emergency department several time over the next several days. Finally, on the third visit, she was told that the stitches which had been placed were too tight. The sutures were removed approximately 10 days following their placement. Steri-Strips were applied. However, the patient suffered a dehiscence of the wound closure, and has developed a ulceration at the injury site. As per instructions, the patient has been using bacitracin topically. She presented for definitive evaluation and management relative to this chronic, nonhealing ulceration. The patient has a history of multiple pre-existing medical problems, which are listed herein. However, she is not diabetic. She is not a smoker. Her ambulatory capacity is limited. She requires a cane for ambulation. She lives alone, but has an adult son who assists in her care. She also has home health nursing personnel. It appears as though the patient's appetite is not good. She has a chronic difficulty in swallowing. She has been losing weight. She is thin and frail, with a BMI of 16.6. [facility] Medical History Dehiscence of laceration repair Advanced age Iron deficiency anemia Osteoporosis Hypothyroidism Diverticulosis Hyperlipidemia Urinary incontinence Vitamin D deficiency Chronic respiratory failure Hammertoe of left foot COPD (chronic obstructive pulmonary disease) GERD (gastroesophageal reflux disease) Non-pressure chronic ulcer of right lower leg with fat layer exposed Home Medications ?Medication ?Instructions ?Recorded ?Last Taken ?Type lorazepam 1 mg tablet 1 mg PO Q8H PRN PRN agitation 01/06/25 Unknown History pantoprazole 20 mg tablet,delayed 20 mg PO DAILY 01/06/25 Unknown History release pantoprazole 40 mg tablet,delayed 40 mg PO DAILY 01/06/25 Unknown History release tiotropium 2.5 mcg-olodaterol 2.5 2 puff inhalation DAILY 01/06/25 Unknown History mcg/actuation mist for inhalation (Stiolto Respimat) tiotropium bromide 18 mcg capsule 1 cap inhalation DAILY 01/06/25 Unknown History with inhalation device Allergy/AdvReac Type Severity Reaction Status Date / Time fluticasone (From Advair Allergy PT UNSURE Verified 01/06/25 14:25 Diskus) OF REACTION salmeterol (From Advair Allergy PT UNSURE Verified 01/06/25 14:25 Diskus) OF REACTION Surgical History History of bladder suspension procedure History of resection of small bowel Social History Smoking Status: Former smoker Vital Signs Vital Signs Vital Signs: Weight Weight: 82 lb Body Mass Index (BMI) 16.5 Physical Exam Const alert, oriented x3, no apparent distress and no limitations Constitutional Narrative: The patient appears thin and frail. Her BMI is 16.6. General Appearance: cooperative, comfortable and well developed Orientation / Consciousness: awake, oriented to person, oriented to place and oriented to time Exam Limitations: no limitations HEENT normocephalic and head/scalp atraumatic Head and Scalp: normal to inspection, normocephalic and atraumatic Face and Sinus: normal facial exam Nose: external nose normal External Ear: external ears normal Eyes EOMs intact bilaterally General Eye: normal appearance of both eyes Resp normal respiratory effort, normal air movement, no retractions and no use of accessory muscles Effort and Inspection: able to speak in complete sentences Extremity no calf tenderness General Extremity: Negative for clubbing or cyanosis Skin Wound Narrative: The ulceration on the patient's right pretibial surface is now completely healed and epithelialized. There is no sign of infection or cellulitis. Neuro oriented x3, CN's II-XII intact bilaterally, moves all extremities, no focal motor deficits and no sensory deficits noted Sensorium / Orientation: awake, alert, oriented to person, oriented to place and oriented to time Speech: speech normal Psych Appearance: grossly normal and appropriate Attitude: calm Activity / Motor Behavior: appropriate eye contact Speech: normal speech Mood & Affect: euthymic mood Thought Process: normal thought process Thought Content: normal thought content Attention / Concentration: attention grossly intact Debridement Note Debridement Note No debridement was completed: No debridement was completed today (There are no open wounds or ulcerations.) Post-Debridement Measurements and Additional Note: Post-Debridement Measurements/Treatment - Nurse 1 - General Ulcer Assessment Start: 02/17/25 14:18 Freq: Status: Active Protocol: PANKAJ Activity Type Activity Date Activity User E-sign Co-sign Detail Recorded Client Recorded Date Recorded By Document 02/17/25 14:18 CELIO [id number] 02/17/25 14:23 DL 02/17/25 14:18 - Today's Visit Information Type of service Follow-up Visit (Physician/MANA[employer] ) Arrival Mode Ambulatory,Cane Transfer Assistance None Patient Identification Verified (Name & Yes ) Patient Requires Transmission-Based No Precautions Height and Weight Body Mass Index (BMI) 16.5 BMI Classification Underweight Vital Signs Temperature (97.8 F-99.1 F) 97.5 F L Temperature Source Temporal Pulse Rate (60-100) 83 Pulse Location Monitor Respiratory Rate (12-18) 16 Respiratory rate source Observation Blood Pressure (90/60-120/80) 122/62 H Blood Pressure Mean 82 History Since Last Visit- (Skip if this is Patient's initial visit) Have you changed medications since your No last visit? Any new allergies or adverse reactions No Had a fall/change in ADL's that may No increase risk of falls Signs or symptoms of abuse and/or No neglect since last visit Have you been in the hospital since your No last visit? Has dressing in place as prescribed Yes Has compression in place as prescribed N/A Has offloadiing in place as prescribed N/A Experienced any changes in pain level or No management Pain Scale: 0-10 Numeric Is Patient Pain Free? Yes [facility] Nurse 1 - General Ulcer Measurement Start: 02/17/25 14:18 Freq: Status: Active Protocol: Activity Type Activity Date Activity User E-sign Co-sign Detail Recorded Client Recorded Date Recorded By Document 02/17/25 14:18 CELIO [id number] 02/17/25 14:23 DL 02/17/25 14:18 Wound Center Nurse 1 #1 right martinez -Current Size (cm) - Length 0 -Current Size (cm) - Width 0 -Current Size (cm) - Depth 0 -Total Square Cm 0 -Photo Taken Yes -Exudate Amt None Present -Wound Margin Flat & Intact -Granulation Amt Large (67-100%) -Granulation Quality [place] -Slough/Fibrin Yes -Necrosis Amt None Present (0 %) -Structure Exposed N/A -Texture (Joanne-wound Skin Appearance) Scarring -Moisture (Joanne-wound Skin Appearance) No Abnormality -Color (Joanne-wound Skin Appearance) No Abnormality -Temperature (Joanne-wound Skin No Abnormality Appearance) (Pt Warm) -Tenderness on Palpation (Joanne-wound No Skin Appearance) -Ulcer Cleansing Rinsed/ Irrigated with Saline -Foul Odor after Cleansing No - Nurse 2 - General Ulcer CM Notes Start: 02/17/25 14:18 Freq: Status: Active Protocol: Activity Type Activity Date Activity User E-sign Co-sign Detail Recorded Client Recorded Date Recorded By Document 02/17/25 15:05 [id number] 02/17/25 15:05 02/17/25 15:05 Wound Center Nurse 2 -Time 15:05 -Correct Patient Yes -Correct Side, Site, Position Yes -Correct Procedure No -Procedure Performed No -Tunneling No -Undermining/Tunneling No -Circular Undermining No -Wound/Ulcer Outcome Healed- Epithelialized -Ulcer Cleansing Not Cleansed -Foul Odor after Cleansing No -Bleeding Controlled with NA Pain Scale: 0-10 Numeric Is Patient Pain Free? Yes - Nurse 3 - General Ulcer D/C NN Start: 02/17/25 14:18 Freq: Status: Active Protocol: Activity Type Activity Date Activity User E-sign Co-sign Detail Recorded Client Recorded Date Recorded By Document 02/17/25 15:05 [id number] 02/17/25 15:06 02/17/25 15:05 Wound Care Center Nurse 3 #1 right martinez -Ulcer Cleansing Not Cleansed -Wound Comment(s) healed Pain Scale: 0-10 Numeric Is Patient Pain Free? Yes - Visit Discharge Discharge Condition Stable Ambulatory Status Ambulatory Transportation Private Auto Charges/Coding Visit Charges Office Visits / Consults: [id number] OV L3 Est 20min Assessment/Plan Assessment/Plan (1) Non-pressure chronic ulcer of right lower leg with fat layer exposed: CODE(S): L97.912 - Non-pressure chronic ulcer of unspecified part of right lower leg with fat layer exposed (2) Dehiscence of laceration repair: CODE(S): T81.33XA - Disruption of traumatic injury wound repair, initial encounter QUALIFIERS: Encounter type: subsequent encounter Qualified Code(s): T81.33XD - Disruption of traumatic injury wound repair, subsequent encounter (3) Advanced age: CODE(S): R54 - Age-related physical debility (4) GERD (gastroesophageal reflux disease): CODE(S): K21.9 - Gastro-esophageal reflux disease without esophagitis (5) COPD (chronic obstructive pulmonary disease): CODE(S): J44.9 - Chronic obstructive pulmonary disease, unspecified (6) Hammertoe of left foot: CODE(S): M20.42 - Other hammer toe(s) (acquired), left foot (7) Chronic respiratory failure: CODE(S): J96.10 - Chronic respiratory failure, unspecified whether with hypoxia or hypercapnia (8) Vitamin D deficiency: CODE(S): E55.9 - Vitamin D deficiency, unspecified (9) Urinary incontinence: CODE(S): R32 - Unspecified urinary incontinence (10) Hyperlipidemia: CODE(S): E78.5 - Hyperlipidemia, unspecified (11) Diverticulosis: CODE(S): K57.90 - Diverticulosis of intestine, part unspecified, without perforation or abscess without bleeding (12) Hypothyroidism: CODE(S): E03.9 - Hypothyroidism, unspecified (13) Osteoporosis: CODE(S): M81.0 - Age-related osteoporosis without current pathological fracture (14) Iron deficiency anemia: CODE(S): D50.9 - Iron deficiency anemia, unspecified (15) History of resection of small bowel: CODE(S): Z90.49 - Acquired absence of other specified parts of digestive tract (16) History of bladder suspension procedure: CODE(S): Z98.890 - Other specified postprocedural states; Z87.448 - Personal history of other diseases of urinary system PLAN: Plan This is an 84-year-old female who presented with an wound on the right distal pretibial surface, which was traumatic in origin. At the time of initial trauma, the patient presented to the emergency department at [facility], where suture repair was performed. The suture closure subsequently dehisced, for which the patient presented for definitive evaluation and management. Upon intake, the patient had been using bacitracin topically. Topical management and serial debridements were performed over a period of weeks, and the patient's wound is now completely healed and epithelialized. Therefore, the patient is to be discharged, and will follow-up henceforth on an as-needed basis. She has been instructed to pad and protect the area for several weeks following discharge. Total time: 22 minutes
== END 2025-03-15 23:59 | disposition home or self-care (01) ==
LOC: WC 14:10
PROVIDERS: PCP Family Medicine; Referring Provider Family Medicine; Visit Provider Surgery
DX: L97.912 Non-pressure chronic ulcer of unspecified part of right lower leg with fat layer exposed (principal); J96.10 Chronic respiratory failure, unspecified whether with hypoxia or hypercapnia; J44.9 Chronic obstructive pulmonary disease, unspecified; K21.9 Gastro-esophageal reflux disease without esophagitis; M20.42 Other hammer toe(s) (acquired), left foot; R32 Unspecified urinary incontinence; D50.9 Iron deficiency anemia, unspecified; M81.0 Age-related osteoporosis without current pathological fracture; E55.9 Vitamin D deficiency, unspecified; E78.5 Hyperlipidemia, unspecified; E03.9 Hypothyroidism, unspecified; R13.10 Dysphagia, unspecified; Z87.891 Personal history of nicotine dependence; T81.33XD Disruption of traumatic injury wound repair, subsequent encounter; R54 Age-related physical debility; K57.90 Diverticulosis of intestine, part unspecified, without perforation or abscess without bleeding; Z90.49 Acquired absence of other specified parts of digestive tract; Z98.890 Other specified postprocedural states; R63.4 Abnormal weight loss; Z68.1 Body mass index [BMI] 19.9 or less, adult
CPT/HCPCS: 99213; G0463